=== PATIENT | female | born 1990 | race Caucasian/White ===

== ENCOUNTER 2017-09-19 06:10 | Inpatient (IN) | payer OTHER ==
[~2017-09-19] VITALS: Ht 170.2 cm; Wt 114.3 kg
[~2017-09-19 06:10] MED LIST: DSS100 PO; IBUP-2071 PO; PERCT PO; PREN1TAB80 PO
[2017-09-19] MEDS ORDERED: RINGERS SOLUTION,LACTATED 1,000 ML IV ONE (06:18)
[2017-09-19] MEDS ORDERED: CITRIC ACID/SODIUM CITRATE 30 ML SOLUTION UDCUP PO ONE (06:30)
[2017-09-19] MEDS ORDERED: METOCLOPRAMIDE HCL 5 MG/ML 2 ML VIAL IVP ONE (06:30)
[2017-09-19 06:47] LABS: BASOPHILS # (AUTO) 0.02 K/uL (0.00-0.20); BASOPHILS % (AUTO) 0.3 % (0.0-2.0); EOSINOPHILS # (AUTO) 0.04 K/uL (0.00-0.70); EOSINOPHILS % (AUTO) 0.52 % (1.0-6.0); HEMATOCRIT 32.5 % (36-46); HEMOGLOBIN 11.1 g/dL (12.0-16.0); LYMPHOCYTES # (AUTO) 2.4 K/uL (1.0-4.8); LYMPHOCYTES % (AUTO) 33.5 % (22.0-44.0); MEAN CORPUSCULAR HGB CONC 34.1 G/dL (31.0-37.0); MEAN CORPUSCULAR VOLUME 91 fL (80-100); MONOCYTES # (AUTO) 0.4 K/uL (0.1-1.0); MONOCYTES % (AUTO) 5.7 % (2.0-9.0); NEUTROPHILS # (AUTO) 4.2 K/uL (1.8-7.7); PLATELET COUNT (AUTO) 189 K/uL (150-450); RED BLOOD CELL COUNT(AUTO) 3.57 MIL/uL (4.00-5.20); RED CELL DISTRIBUTION WIDTH 13.5 % (11.5-14.5)
[2017-09-19] MEDS ORDERED: CeFAZolin 2 GM/DEXTROSE 50 ML IV ONE (06:58)
[2017-09-19] MEDS ORDERED: FentaNYL CITRATE-PF 100 MCG/2 ML VIAL ONE (06:59)
[2017-09-19] MEDS ORDERED: SODIUM CHLORIDE 0.9% 200 ML ONE (06:59)
[2017-09-19] MEDS ORDERED: MORPHINE SULFATE/PF 1 MG/ML 10 ML AMP ONE (06:59)
[2017-09-19] MEDS ORDERED: MEPERIDINE-PF 25 MG/ML SYRINGE IVP PRN (08:30)
[2017-09-19] MEDS ORDERED: DiphenhydrAMINE HCL 50 MG/ML VIAL IVP PRN ×2 (08:30→09:30)
[2017-09-19] MEDS ORDERED: PROMETHAZINE HCL 12.5 MG in SODIUM CHLORIDE 0.9% 50 ML IV PRN (08:30)
[2017-09-19] MEDS ORDERED: NALBUPHINE HCL 10 MG/ML VIAL IVP PRN (08:30)
[2017-09-19] MEDS ORDERED: ONDANSETRON HCL 4 MG/2 ML VIAL IVP PRN ×2 (08:30→09:30)
[2017-09-19] MEDS ORDERED: DEXAMETHASONE SOD PHOS 4 MG/ML VIAL IVP PRN (08:30)
[2017-09-19] MEDS ORDERED: LANOLIN 7 GM OINTMENT TP PRN (09:00)
[2017-09-19] MEDS ORDERED: ACETAMINOPHEN/CODEINE 300-30 MG TABLET PO PRN (09:00)
[2017-09-19] MEDS: MAGNESIUM HYDROXIDE SUSPENSION 30 ML UDCUP PO SCH ×2 (09:00→20:50)
[2017-09-19] MEDS ORDERED: FentaNYL CITRATE-PF 100 MCG/2 ML VIAL IVP PRN ×3 (09:30)
[2017-09-19] MEDS ORDERED: NALOXONE HCL 0.4 MG/ML VIAL IVP PRN (09:30)
[2017-09-19] MEDS ORDERED: GUM MASTIC/STORAX/MSAL/ALCOHOL LIQUID 0.67 ML VIAL TP ONE (09:37)
[2017-09-19] MEDS: DEXTROSE 5%-0.45% SODIUM CHL 1,000 ML IV SCH ×4 (10:22→20:50)
[2017-09-19] MEDS: NALBUPHINE HCL 10 MG/ML VIAL IVP SCH ×3 (12:08→23:43)
[2017-09-20] MEDS: IBUPROFEN 800 MG TABLET PO SCH ×4 (02:02→21:32)
[2017-09-20] MEDS ORDERED: OXYTOCIN 10 UNITS/ML VIAL IM ONE (05:21)
[2017-09-20] MEDS ORDERED: ATROPINE SULFATE 0.4 MG/ML VIAL IM ONE (05:21)
[2017-09-20] MEDS ORDERED: PHENYLEPHRINE HCL 10 MG/ML VIAL IVP ONE (05:21)
[2017-09-20] MEDS ORDERED: EPHEDrine SULFATE 50 MG/ML VIAL IM ONE (05:21)
[2017-09-20] MEDS ORDERED: DEXAMETHASONE SOD PHOS 4 MG/ML VIAL IVP ONE (05:21)
[2017-09-20] MEDS ORDERED: ONDANSETRON HCL 4 MG/2 ML VIAL IVP ONE (05:21)
[2017-09-20] MEDS: NALBUPHINE HCL 10 MG/ML VIAL IVP SCH (05:32)
[2017-09-20] MEDS: MAGNESIUM HYDROXIDE SUSPENSION 30 ML UDCUP PO SCH ×2 (08:47→21:32)
[2017-09-21] MEDS: IBUPROFEN 800 MG TABLET PO SCH ×4 (03:25→22:25)
[2017-09-21] MEDS: MAGNESIUM HYDROXIDE SUSPENSION 30 ML UDCUP PO SCH ×2 (08:54→21:00)
[2017-09-21] MEDS: ACETAMINOPHEN/CODEINE 300-30 MG TABLET PO PRN (12:40)
[2017-09-22] MEDS: IBUPROFEN 800 MG TABLET PO SCH ×2 (04:25→10:33)
[2017-09-22] MEDS: MAGNESIUM HYDROXIDE SUSPENSION 30 ML UDCUP PO SCH (08:03)
[2017-09-22] MEDS: ACETAMINOPHEN/CODEINE 300-30 MG TABLET PO PRN (08:07)
[2017-09-22] MEDS ORDERED: IBUP-2071 PO (11:11)
== END 2017-09-22 13:20 | disposition home or self-care (01) | DRG 766 ==
LOC: 4S 06:10 → PREOBSVTOIN 06:41
PROVIDERS: ADMIT Obstetrics & Gynecology; ATTEND Obstetrics & Gynecology
PROC: 10D00Z1 Extraction of Products of Conception, Low, Open Approach (ICD-10-PCS; principal; 2017-09-19)
DX: O34.219 Maternal care for unspecified type scar from previous cesarean delivery (principal); Z37.0 Single live birth; Z3A.39 39 weeks gestation of pregnancy; Z91.048 Other nonmedicinal substance allergy status
CPT/HCPCS: 86850; 86900; 86901; 87081; J0461; J0690; J1100; J2300; J2370; J2405; J2590; J2765; J3010; J3490; J7050; J7120